=== PATIENT | female | born 2000 | race Caucasian/White ===

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

== ENCOUNTER 2021-02-16 22:35 | Emergency (ER) | payer BC, OTHER ==
[2021-02-16] MEDS ORDERED: Sodium Chloride 0.9% 1,000 ML IV ONE (22:52)
[2021-02-16 23:21] LABS: ANION GAP 14.8 mEq/L (7-13); CHLORIDE,CL 102 mmol/L (98-107); SODIUM,NA 139 mmol/L (136-145)
--- NOTE | 2021-02-16 23:33 | EDM.PDOC ---
ED HPI GENERAL MEDICAL PROBLEM - General Chief Complaint: Gastrointestinal Problem Stated Complaint: BACK PAIN, NAUSEA Time Seen by Provider: 02/16/21 23:05 Source of Information: Reports: Patient, Family (Mother), RN, RN Notes Reviewed History Limitations: Reports: No Limitations - History of Present Illness INITIAL COMMENTS - FREE TEXT/NARRATIVE: Patient presents to the ED via personal vehicle with mother for complaints of low back pain. The patient reports a history of low back pain due to degenerative disk disease for which she underwent an unknown surgery in 2018. She states she chronically experiences pain but notes it has increased in severity over the past 30 days. She reports she has been taking ibuprofen in the morning and Aleve at night which offers her minimal relief of pain. The pain is localized to her midline lower back and does not radiate. The patient reports the pain in her back has progressed even more two days ago when she began to experience nausea and diarrhea. She denies fever, shaking chills, palpitations, vomiting, dysuria, hematuria, melena, or hematochezia. She does attest to inability to fully void over the past two days for which she has taken an OTC bladder medication. The patient states she has an appointment with her primary care provider in two days via telemed, but presents tonight as her pain became too great. Lower Back Pain Score (Numeric/FACES): 7 - Related Data Allergies Allergy/AdvReac Type Severity Reaction Status Date / Time chlorine bleach Allergy Rash Uncoded 02/16/21 22:53 Home Meds: Home Meds Lidocaine [Lidocaine Pain Relief] 1 each TP Q4H 02/16/21 [History] Sertraline HCl [Zoloft] 50 mg PO DAILY 02/16/21 [History] Past Medical History Respiratory History: Reports: Asthma Gastrointestinal History: Reports: GERD Genitourinary History: Reports: UTI, Recurrent [employer] History: Reports: Other (See Below) Other [employer] History: Depo shot for control Musculoskeletal History: Reports: Back Pain, Chronic, Other (See Below) Other Musculoskeletal History: Shermans Disease, Schmorals Nodes, Narrow L4,L5 spinal canal. DDD. Surgery on L4-L5 for DDD Psychiatric History: Reports: Depression Endocrine/Metabolic History: Reports: Obesity/BMI 30+ - Past Surgical History Musculoskeletal Surgical History: Reports: Other (See Below) Other Musculoskeletal Surgeries/Procedures:: Laser Spine surgery Social & Family History - Family History Family Medical History: No Pertinent Family History - Tobacco Use Tobacco Use Status *Q: Never Tobacco User - Caffeine Use Caffeine Use: Reports: Coffee, Soda - Recreational Drug Use Recreational Drug Use: No - Living Situation & Occupation Living situation: Reports: with Family Occupation: Employed ED ROS GENERAL - Review of Systems Review Of Systems: Comprehensive ROS is negative, except as noted in HPI. ED EXAM,LOWER BACK PAIN/INJURY - Physical Exam Exam: See Below Exam Limited By: No Limitations General Appearance: Alert, No Apparent Distress Eye Exam: Bilateral Eye: EOMI, Normal Inspection, PERRL (3mm) Throat/Mouth: Normal Inspection, Normal Voice, No Airway Compromise Head: Atraumatic, Normocephalic Neck: Normal Inspection, Supple, Non-Tender, Full Range of Motion. No: Lymphadenopathy (L), Lymphadenopathy (R) Respiratory/Chest: No Respiratory Distress, Lungs Clear, Normal Breath Sounds, No Accessory Muscle Use, Chest Non-Tender Cardiovascular: Normal Peripheral Pulses, Regular Rate, Rhythm, No Edema, No Gallop, No JVD, No Murmur, No Rub GI/Abdominal: Soft, No Distention, No Mass, Pelvis Stable, Tender (To palpation of LUQ), Abnormal Bowel Sounds (Hypoactive bowel sounds) (Female) Exam: Deferred Rectal (Female) Exam: Deferred Back Exam: Decreased Range of Motion. No: CVA Tenderness (L), CVA Tenderness (R), Muscle Spasm, Paraspinal Tenderness, Vertebral Tenderness (Pain not reproducible with palpation) Extremities: Normal Inspection, Normal Range of Motion, Non-Tender, No Pedal Edema, Normal Capillary Refill Neurological: Alert, Normal Mood/Affect, Normal Dorsiflexion, CN II-XII Intact, Normal Plantar Flexion, Normal Gait, Normal Reflexes, No Motor/Sensory Deficits, Oriented x 3, Straight Leg Raise (L), Straight Leg Raise (R). No: Saddle Anesthesia Psychiatric: Normal Affect, Normal Mood Skin Exam: Warm, Dry, Intact, Normal Color, No Rash. No: Ecchymosis, Erythema, Jaundice, Mottled, Pallor, Petechiae Course - Vital Signs Last Recorded V/S: Last Vital Signs Temp 97.4 F 02/16/21 22:55 Pulse 92 02/16/21 22:55 Resp 16 02/16/21 22:55 BP 136/79 02/16/21 22:55 Pulse Ox 96 02/16/21 22:55 - Orders/Labs/Meds Labs: Laboratory Tests 02/16/21 02/16/21 02/16/21 Range/Units 23:02 23:02 23:02 WBC 7.0 (5.0-10.0) 10^3/uL RBC 5.51 H (4.2-5.4) 10^6/uL Hgb 14.6 (12.0-16.0) g/dL Hct 44.0 (37.0-47.0) % MCV 79.9 L (80-100) fL MCH 26.5 L (27.0-34.0) pg MCHC 33.2 (33.0-35.0) g/dL Plt Count 257 (150-450) 10^3/uL Neut % (Auto) 73.4 (42.2-75.2) % Lymph % (Auto) 15.4 L (20.5-50.1) % [place] % (Auto) 9.6 H (2-8) % Eos % (Auto) 1.2 (1.0-3.0) % Baso % (Auto) 0.4 (0.0-1.0) % Sodium 139 (136-145) mmol/L Potassium 3.8 (3.5-5.1) mmol/L Chloride 102 (98-107) mmol/L Carbon Dioxide 26 (21-32) mmol/L Anion Gap 14.8 H (7-13) mEq/L BUN 12 (7-18) mg/dL Creatinine 1.08 H (0.55-1.02) mg/dL Est Cr Clr Drug Dosing 89.85 mL/min Estimated GFR (MDRD) > 60 BUN/Creatinine Ratio 11.1 (No establ ref range) Glucose 97 (70-99) mg/dL Lactic Acid 0.7 (0.4-2.0) mmol/L Calcium 8.4 L (8.5-10.1) mg/dL Magnesium 1.9 (1.8-2.4) mg/dL Total Bilirubin 0.2 (0.2-1.0) mg/dL AST 14 L (15-37) U/L ALT 26 (14-59) U/L Alkaline Phosphatase 61 (46-116) U/L Total Protein 7.1 (6.4-8.2) g/dL Albumin 3.5 (3.4-5.0) g/dL Globulin 3.6 Albumin/Globulin Ratio 1.0 Urine Color (YELLOW) Urine Appearance (CLEAR) Urine pH (5.0-9.0) Ur Specific [place] (1.005-1.030) Urine Protein (NEGATIVE) Urine Glucose (UA) (NEGATIVE) Urine Ketones (NEGATIVE) Urine Occult Blood (NEGATIVE) Urine Nitrite (NEGATIVE) Urine Bilirubin (NEGATIVE) Urine Urobilinogen (0.2-1.0) mg/dL Ur Leukocyte Esterase (NEGATIVE) Urine RBC /HPF Urine WBC (0-5/HPF) /HPF Ur Epithelial Cells (NOT SEEN) /HPF Urine Bacteria (0-FEW/HPF) /HPF Urine Mucus (NOT SEEN) /LPF Urine HCG, Qual Urine Opiates Screen (NEGATIVE) Ur Oxycodone Screen (NEGATIVE) Urine Methadone Screen (NEGATIVE) Ur Barbiturates Screen (NEGATIVE) U Tricyclic Antidepress (NEGATIVE) Ur Phencyclidine Scrn (NEGATIVE) Ur Amphetamine Screen (NEGATIVE) U Methamphetamines Scrn (NEGATIVE) Urine MDMA Screen (NEGATIVE) U Benzodiazepines Scrn (NEGATIVE) Urine Cocaine Screen (NEGATIVE) U Marijuana (THC) Screen (NEGATIVE) Ethyl Alcohol < 3 (0) mg/dL 02/16/21 02/16/21 02/16/21 Range/Units 23:39 23:39 23:39 WBC (5.0-10.0) 10^3/uL RBC (4.2-5.4) 10^6/uL Hgb (12.0-16.0) g/dL Hct (37.0-47.0) % MCV (80-100) fL MCH (27.0-34.0) pg MCHC (33.0-35.0) g/dL Plt Count (150-450) 10^3/uL Neut % (Auto) (42.2-75.2) % Lymph % (Auto) (20.5-50.1) % [place] % (Auto) (2-8) % Eos % (Auto) (1.0-3.0) % Baso % (Auto) (0.0-1.0) % Sodium (136-145) mmol/L Potassium (3.5-5.1) mmol/L Chloride (98-107) mmol/L Carbon Dioxide (21-32) mmol/L Anion Gap (7-13) mEq/L BUN (7-18) mg/dL Creatinine (0.55-1.02) mg/dL Est Cr Clr Drug Dosing mL/min Estimated GFR (MDRD) BUN/Creatinine Ratio (No establ ref range) Glucose (70-99) mg/dL Lactic Acid (0.4-2.0) mmol/L Calcium (8.5-10.1) mg/dL Magnesium (1.8-2.4) mg/dL Total Bilirubin (0.2-1.0) mg/dL AST (15-37) U/L ALT (14-59) U/L Alkaline Phosphatase (46-116) U/L Total Protein (6.4-8.2) g/dL Albumin (3.4-5.0) g/dL Globulin Albumin/Globulin Ratio Urine Color Yellow (YELLOW) Urine Appearance Clear (CLEAR) Urine pH 6.0 (5.0-9.0) Ur Specific [place] 1.010 (1.005-1.030) Urine Protein Negative (NEGATIVE) Urine Glucose (UA) Negative (NEGATIVE) Urine Ketones Negative (NEGATIVE) Urine Occult Blood Trace-intact H (NEGATIVE) Urine Nitrite Negative (NEGATIVE) Urine Bilirubin Negative (NEGATIVE) Urine Urobilinogen 0.2 (0.2-1.0) mg/dL Ur Leukocyte Esterase Negative (NEGATIVE) Urine RBC 5-10 H /HPF Urine WBC 0-5 (0-5/HPF) /HPF Ur Epithelial Cells Few (NOT SEEN) /HPF Urine Bacteria Rare (0-FEW/HPF) /HPF Urine Mucus Few H (NOT SEEN) /LPF Urine HCG, Qual Negative Urine Opiates Screen Negative (NEGATIVE) Ur Oxycodone Screen Negative (NEGATIVE) Urine Methadone Screen Negative (NEGATIVE) Ur Barbiturates Screen Negative (NEGATIVE) U Tricyclic Antidepress Negative (NEGATIVE) Ur Phencyclidine Scrn Negative (NEGATIVE) Ur Amphetamine Screen Negative (NEGATIVE) U Methamphetamines Scrn Negative (NEGATIVE) Urine MDMA Screen Negative (NEGATIVE) U Benzodiazepines Scrn Negative (NEGATIVE) Urine Cocaine Screen Negative (NEGATIVE) U Marijuana (THC) Screen Negative (NEGATIVE) Ethyl Alcohol (0) mg/dL Meds: Medications Discontinued Medications Generic Name Dose Route Start Last Admin Trade Name Freq PRN Reason Stop Dose Admin Sodium Chloride 1,000 mls @ 999 mls/hr 02/16/21 22:52 02/16/21 23:08 Normal Saline IV 02/16/21 23:52 999 mls/hr .BOLUS ONE Administration Ondansetron HCl 4 mg 02/17/21 01:12 02/17/21 01:20 Ondansetron 4 Mg/2 Ml Sdv IVPUSH 02/17/21 01:13 4 mg ONETIME ONE Administration Tramadol HCl 50 mg 02/16/21 23:42 02/16/21 23:47 Tramadol 50 Mg Tab PO 02/16/21 23:43 50 mg ONETIME ONE Administration - Radiology Interpretation Free Text/Narrative:: [facility] Final Radiology Report Call: [phone] assistance Online chat: [email or web address] Name: LILLY MCFARLAND Age: 20Years F Date: 02/17/2021 SSN: -- : 2000 Study: CT ABDOMEN PELVIS WO CONT Requesting Physician: Katerine An Images: [phone] Addl Studies: Provided Clinical History: r/o kidney stone; worsening back pain for two days Contrast: Without Contrast Medium: Contrast Amount: Contrast Method: Page 1 of 2 PROCEDURE INFORMATION: Exam: CT Abdomen And Pelvis Without Contrast Exam date and time: 02/17/2021 12:33 AM Age: 20 years old Clinical indication: Other: CVA tenderness--microscopic hematuria; Additional info: R/O kidney stone; Worsening back pain for two days TECHNIQUE: Imaging protocol: Computed tomography of the abdomen and pelvis without contrast. Radiation optimization: All CT scans at this facility use at least one of these dose optimization techniques: automated exposure control; mA and/or kV adjustment per patient size (includes targeted exams where dose is matched to clinical indication); or iterative reconstruction. COMPARISON: No relevant prior studies available. FINDINGS: Lungs: 1.4 cm semi solid nodular opacity in the right upper lobe. Liver: Normal. No mass. Gallbladder and bile ducts: No wall thickening, pericholecystic fluid or stones. Pancreas: Normal. No ductal dilation. Spleen: Normal. No splenomegaly. Adrenal glands: Normal. No mass. Kidneys and ureters: Normal. No hydronephrosis. Stomach and bowel: Unremarkable. No obstruction. No mucosal thickening. Appendix: No evidence of appendicitis. Intraperitoneal space: Unremarkable. No free air. No significant fluid collection. Vasculature: Unremarkable. No abdominal aortic aneurysm. Lymph nodes: Unremarkable. No enlarged lymph nodes. Urinary bladder: Unremarkable as visualized. Reproductive: There is an IUD in good position. Bones/joints: Unremarkable. No acute fracture. Soft tissues: Fat containing umbilical hernia. IMPRESSION: 1. Small focus of right upper lobe pneumonia versus semi solid nodule. Consider follow-up examination in 6 weeks. 2. Fat containing umbilical hernia. 3. No cause for hematuria is identified. Thank you for allowing us to participate in the care of your patient. Dictated and Authenticated by: Kareem Gillis DO 02/17/2021 12:56 AM Central Time ([place] & [place]) - Re-Assessments/Exams Free Text/Narrative Re-Assessment/Exam: 02/16/21 NS 1L bolus initiated given HPI. Zofran 4mg IVP administered x1 Given acute exacerbation of back pain, slightly reduced kidney function, and high RBCs in UA, will obtain CT abdomen/pelvis to r/o nephrolithiasis. Hgb negative. ETOH and Tox screen negative. CBC unremarkable for acute processes; no evidence of infection or anemia noted. CT abdomen/pelvis unremarkable for acute processes, no evidence of renal stones. Discussed findings of examination, lab work, and imaging with patient and mother, including incidental lung finding on CT and recommendations for follow up. Will treat acute exacerbation of chronic back pain with Toradol; patient instructed to keep previously scheduled appointment with PCP. Patient and mother verbalized understanding and agreement with the plan of care. Departure - Departure Time of Disposition: 01:02 Disposition: Home, Self-Care 01 Condition: Good Clinical Impression: Diarrhea, Lung abnormality, Acute exacerbation of chronic low back pain Umbilical hernia Qualifiers: Obstruction and gangrene presence: without obstruction or gangrene Qualified Code(s): K42.9 - Umbilical hernia without obstruction or gangrene Hematuria Qualifiers: Hematuria type: asymptomatic microscopic Qualified Code(s): R31.21 - Asymptomatic microscopic hematuria - Discharge Information *PRESCRIPTION DRUG MONITORING PROGRAM REVIEWED*: Not Applicable *COPY OF PRESCRIPTION DRUG MONITORING REPORT IN PATIENT KHANG: Not Applicable Instructions: Dehydration, Adult, [id number] Referrals: Graciela Montilla MD [Primary Care Provider] - Forms: ED Department Discharge Additional Instructions: Rx: tramadol 1.) Keep your previously scheduled appointment with your primary care provider to discuss ongoing management of back pain. 2.) Drink frequent, small sips of water while experiencing gastrointestinal symptoms to avoid dehydration. 3.) You may alternate heat/ice to your lower back for help with muscle tightness. 4.) You may also take acetaminophen (Tylenol) 1000mg every six hours, as back pa in persists. 5.) Follow up with your primary care provider in approximately 6 weeks for reevaluation of lung abnormality. Sepsis Event Note (ED) - Evaluation Sepsis Screening Result: No Definite Risk
[2021-02-16] MEDS ORDERED: traMADol 50 MG Tab PO ONE (23:42)
--- NOTE | 2021-02-17 00:56 | CT ---
PROCEDURE INFORMATION: Exam: CT Abdomen And Pelvis Without Contrast Exam date and time: 02/17/2021 12:33 AM Age: 20 years old Clinical indication: Other: CVA tenderness--microscopic hematuria; Additional info: R/O kidney stone; Worsening back pain for two days TECHNIQUE: Imaging protocol: Computed tomography of the abdomen and pelvis without contrast. Radiation optimization: All CT scans at this facility use at least one of these dose optimization techniques: automated exposure control; mA and/or kV adjustment per patient size (includes targeted exams where dose is matched to clinical indication); or iterative reconstruction. COMPARISON: No relevant prior studies available. FINDINGS: Lungs: 1.4 cm semi solid nodular opacity in the right upper lobe. Liver: Normal. No mass. Gallbladder and bile ducts: No wall thickening, pericholecystic fluid or stones. Pancreas: Normal. No ductal dilation. Spleen: Normal. No splenomegaly. Adrenal glands: Normal. No mass. Kidneys and ureters: Normal. No hydronephrosis. Stomach and bowel: Unremarkable. No obstruction. No mucosal thickening. Appendix: No evidence of appendicitis. Intraperitoneal space: Unremarkable. No free air. No significant fluid collection. Vasculature: Unremarkable. No abdominal aortic aneurysm. Lymph nodes: Unremarkable. No enlarged lymph nodes. Urinary bladder: Unremarkable as visualized. Reproductive: There is an IUD in good position. Bones/joints: Unremarkable. No acute fracture. Soft tissues: Fat containing umbilical hernia. IMPRESSION: 1. Small focus of right upper lobe pneumonia versus semi solid nodule. Consider follow-up examination in 6 weeks. 2. Fat containing umbilical hernia. 3. No cause for hematuria is identified.
[2021-02-17] MEDS ORDERED: Ondansetron 4 MG/2 ML SDV IVPUSH ONE (01:12)
== END 2021-02-17 01:20 | disposition home or self-care (01) ==
LOC: DL.ED 22:35
DX: M54.5 Low back pain (principal); K42.9 Umbilical hernia without obstruction or gangrene; R19.7 Diarrhea, unspecified; R31.21 Asymptomatic microscopic hematuria; R94.2 Abnormal results of pulmonary function studies; G89.29 Other chronic pain; J45.909 Unspecified asthma, uncomplicated; E66.9 Obesity, unspecified; Z68.41 Body mass index [BMI] 40.0-44.9, adult; Z91.048 Other nonmedicinal substance allergy status
CPT/HCPCS: 36415; 74176; 80053; 80305; 80307; 81001; 81025; 83605; 83735; 85025; 96374; 99284; A9270; J2405; J7030

== ENCOUNTER 2022-06-18 22:31 | Emergency (ER) | payer OTHER ==
[2022-06-18] MEDS: methylPREDNISolone Sodium Succinate 125 MG/2 ML SDV IM ONE (23:16)
[2022-06-18] MEDS: Ketorolac 30 MG/ML SDV IM ONE (23:16)
== END 2022-06-18 23:28 | disposition home or self-care (01) ==
LOC: DL.ED 22:31
DX: M54.50 Low back pain, unspecified (principal); F17.210 Nicotine dependence, cigarettes, uncomplicated; E66.9 Obesity, unspecified; Z68.42 Body mass index [BMI] 45.0-49.9, adult; Z88.8 Allergy status to other drugs, medicaments and biological substances
CPT/HCPCS: 96372; 99283; J1885; J2930